=== PATIENT | male | born 1970 | race Hispanic/Latino ===

== ENCOUNTER 2020-06-20 11:47 | Emergency (ER) | payer OTHER, SELFPAY ==
[2020-06-20 12:02] VITALS: BP 151/89; PULSE 93; RESP 18; TEMP 37.1; O2SAT 99
--- NOTE | 2020-06-20 12:04 | ED.GENADULT ---
HPI - General Adult General Chief complaint: Wound/Laceration Stated complaint: Swollen Nose Time Seen by Provider: 06/20/20 12:04 Source: patient Mode of arrival: ambulatory Limitations: no limitations History of Present Illness HPI narrative: 49-year-old male patient with history of HIV presents to the [facility] with complaints of a swollen nose and some wounds to the tip of the nose as well as some redness to the left side of the cheek. Patient states about 3 to 4 days ago he did have a blister at the tip of his nose and states that he popped it and since then he has had some erythema, swelling and some discharge to the nose area. Patient also noticed some redness to the left side of the cheek with a little bit of swelling and states he also has a lump to the left side of the neck. Denies any fevers, body aches or chills. Patient is on anti-viral medications for HIV currently. Related Data Home Medications Medication Instructions Recorded Confirmed dolutegravir-rilpivirine [Juluca] 1 tablet PO DAILY 06/20/20 06/20/20 fostemsavir [Rukobia] 600 mg PO BID 06/20/20 06/20/20 Allergies Allergy/AdvReac Type Severity Reaction Status Date / Time No Known Allergies Allergy Verified 06/20/20 11:50 Review of Systems Review of Systems: Narrative: CONSTITUTIONAL: Denies fever, chills, or sweats. EYES: Denies visual changes, redness, or discharge. ENT: Denies rhinorrhea, congestion, sore throat, or otalgia. CARDIOVASCULAR: Denies chest pain, palpitations, or edema. RESPIRATORY: Denies cough or dyspnea. GASTROINTESTINAL: Denies abdominal pain, nausea, vomiting, or diarrhea. GENITOURINARY: Denies dysuria or hematuria. SKIN: Denies rash or itching. Positive wound to nose x3 to 4 days with erythema and slight swelling to the left cheek MUSCULOSKELETAL: Denies back pain, joint pain, or myalgia. NEUROLOGIC: Denies headache, numbness, or weakness. PSYCHIATRIC: Denies anxiety or depression. FOR[facility]LY [facility], [facility] Past Medical History Medical History (Updated 06/20/20 @ 12:25 by TANNER Farr) HIV disease Comments At the time of my signature I agree with nursing past medical history, surgical, social, and family history. There is no relevant family history pertinent to the presenting complaint. Exam Narrative: Exam Narrative: GENERAL: Well-appearing, well-nourished, and in no acute distress. HEAD: Normocephalic, atraumatic. EYES: PERRLA and EOMI. patient does have a subconjunctival hemorrhage to the left eye ENT: Nares clear, no rhinorrhea or epistaxis. Mucous membranes moist. NECK: Supple. Left cervical lymphadenopathy with very slight tenderness noted CHEST: Clear to auscultation. No respiratory distress. HEART: Regular rate and rhythm. No murmur heard. Normal peripheral pulses. ABDOMEN: Soft, nontender, nondistended, normal active bowel sounds. EXTREMITIES: Normal range of motion. No edema. SKIN: Warm, dry, no rash. Patient has honey colored crusting noted to the tip of the nose into the opening of the left nostril. There is some erythema and tenderness and swelling noted to the nose area. No active drainage at this time. There is also some very slight erythema and warmth noted to the left side of the cheek under the eye. NEURO: No focal deficits. Alert and oriented x3. Course Vital Signs Vital signs: Vital Signs Temperature 37.1 C 06/20/20 12:02 Pulse Rate 93 06/20/20 12:02 Respiratory Rate 18 06/20/20 12:02 Blood Pressure 151/89 H 06/20/20 12:02 Pulse Oximetry 99 06/20/20 12:02 Temperature 37.1 C 06/20/20 12:02 Pulse Rate 93 06/20/20 12:02 Respiratory Rate 18 06/20/20 12:02 Blood Pressure 151/89 H 06/20/20 12:02 Pulse Oximetry 99 06/20/20 12:02 Vital signs reviewed. The patient has been informed that they may have pre-hypertension or Hypertension based on a BP reading in the department. I recommend that the patient call the primary care provider listed on their discharge instructions or a
== END 2020-06-20 12:23 | disposition home or self-care (01) ==
PROVIDERS: Emergency Provider Nurse Practitioner Family
DX: L03.211 Cellulitis of face (principal); L01.00 Impetigo, unspecified; Z21 Asymptomatic human immunodeficiency virus [HIV] infection status
CPT/HCPCS: 99203; G0463